=== PATIENT | male | born 1970 | race Hispanic/Latino ===

== ENCOUNTER 2018-07-31 23:41 | Emergency (ER) | payer SELFPAY ==
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
[2018-08-01 04:16] VITALS: BP 145/88
== END 2018-08-01 04:24 | disposition home or self-care (01) ==
LOC: ED 23:41
DX: T40.1X1A Poisoning by heroin, accidental (unintentional), initial encounter (principal); I10 Essential (primary) hypertension; Y92.89 Other specified places as the place of occurrence of the external cause
CPT/HCPCS: 99282